=== PATIENT | male | born 1995 ===

== ENCOUNTER 2023-09-26 06:29 | Day surgery (SDC) | payer OTHER ==
[2023-09-26] MEDS ORDERED: Lidocaine 1% with EPINEPHrine 1:100,000 50 ML MDV ONE (06:43)
[2023-09-26] MEDS ORDERED: Bupivacaine 0.5% 50 ML MDV ONE (06:43)
[2023-09-26] MEDS ORDERED: Bupivacaine 0.5%/EPINEPHrine 1:200,000 50 ML MDV ONE (06:44)
[2023-09-26] MEDS ORDERED: Hydrogen Peroxide 3% Top Soln 240 ML Bottle ONE (06:44)
[2023-09-26] MEDS ORDERED: Acetaminophen 500 MG Tab PO ONE (06:45)
[2023-09-26] MEDS ORDERED: Lactated Ringers 1,000 ML IV SCH (07:00)
[2023-09-26] MEDS ORDERED: fentaNYL 250 MCG/5 ML SDV ONE (07:20)
[2023-09-26] MEDS ORDERED: Ondansetron 4 MG/2 ML SDV ONE (07:21)
[2023-09-26] MEDS ORDERED: Propofol 200 MG/20 ML SDV ONE (07:21)
[2023-09-26] MEDS ORDERED: Dexamethasone 4 MG/ML SDV ONE (07:21)
[2023-09-26] MEDS ORDERED: Glycopyrrolate 0.2 MG/ML 5 ML MDV ONE (07:21)
[2023-09-26] MEDS ORDERED: Neostigmine Methylsulfate 10 MG/10 ML MDV ONE (07:21)
[2023-09-26] MEDS ORDERED: Rocuronium 50 MG/5 ML Vial ONE (07:21)
[2023-09-26] MEDS ORDERED: ceFAZolin 2 GM in Premix Bag 1 BAG IV ONE (07:30)
[2023-09-26] MEDS ORDERED: Acetaminophen/HYDROcodone 325-5 MG Tab PO ONE (09:50)
== END 2023-09-26 10:15 | disposition home or self-care (01) ==
LOC: JP.SDS 06:29
PROVIDERS: ATTEND Student in an Organized Health Care Education/Training Program
DX: K61.0 Anal abscess (principal); K21.9 Gastro-esophageal reflux disease without esophagitis
CPT/HCPCS: 45990; A9270; J0690; J1100; J2405; J2704; J2710; J3010; J3490; J7120